=== PATIENT | male | born 1970 | race Caucasian/White ===

== ENCOUNTER 2016-09-23 10:08 | Inpatient (IN) | payer OTHER ==
[2016-09-23 10:28] VITALS: BMI 24.0
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
[2016-09-23] MEDS ORDERED: MAG HYDROX/AL HYDROX/SIMETH 30 ML UNIT-DOSE CUP PO PRN (10:42)
[2016-09-23] MEDS ORDERED: MENTHOL/PHENOL 1 EACH UD MM PRN (10:42)
[2016-09-23] MEDS ORDERED: guaiFENesin/D-METHORPHAN HB 10 ML UNIT-DOSE CUPS PO PRN (10:42)
[2016-09-23] MEDS ORDERED: chlordiazePOXIDE HCL 25 MG CAPSULE PO PRN (10:42)
[2016-09-23] MEDS ORDERED: MAGNESIUM CITRATE 300 ML BOTTLE PO PRN (10:42)
[2016-09-23] MEDS ORDERED: P-EPHED 60MG/TRIPROLIDI 2.5MG TABLET PO PRN (10:42)
[2016-09-23] MEDS ORDERED: MAGNESIUM HYDROX 2400MG/30ML ORAL SUSPENSION 30 ML CUP PO PRN (10:42)
[2016-09-23] MEDS ORDERED: NICOTINE POLACRILEX 4 MG GUM BUC PRN (10:42)
[2016-09-23] MEDS ORDERED: LOPERAMIDE HCL 2 MG CAPSULE PO PRN (10:42)
[2016-09-23] MEDS ORDERED: ACETAMINOPHEN 325 MG TABLET (FP) PO PRN (10:42)
[2016-09-23] MEDS ORDERED: chlordiazePOXIDE HCL 25 MG CAPSULE PO ONE (12:00)
[2016-09-23] MEDS ORDERED: diazePAM 5 MG TABLET PO PRN (13:22)
[2016-09-23] MEDS ORDERED: METHADONE HCL 10 MG TABLET (FOR DETOX USE ONLY) PO ONE ×2 (13:30→23:00)
[2016-09-23 13:44] LABS: URINE APPEARANCE CLEAR; URINE BILIRUBIN NEGATIVE (NEGATIVE); URINE BLOOD NEGATIVE (NEGATIVE); URINE COLOR YELLOW; URINE GLUCOSE (UA) NEGATIVE (NEGATIVE); URINE KETONE TRACE (NEGATIVE); URINE LEUK ESTERASE NEGATIVE (NEGATIVE); URINE NITRITE NEGATIVE (NEGATIVE); URINE PROTEIN NEGATIVE (NEGATIVE); URINE UROBILINOGEN 2.0 E.U/dl E.U./dl (0.2-1.0)
[2016-09-23] MEDS: chlordiazePOXIDE HCL 25 MG CAPSULE PO SCH ×2 (17:20→22:39)
--- NOTE | 2016-09-23 17:29 | CONSULT ---
[facility] Psychiatric Consult - Data Date of interview: 09/23/16 Admission source: [facility] Identifying data: First admission to [facility] for this 46 y/o male seeking detox treatment on for heroin,alcohol,cocaine and marijuana dependence.Patient is single,a father of two,homeless,unemployed and deprived of any source of income. Substance Abuse History: - Smoking Cessation. Smoking history: Current every day smoker. Have you smoked in the past 12 months: Yes. Aproximately how many cigarettes per day: 20. Hx Chewing Tobacco Use: No. Initiated information on smoking cessation: Yes. 'Breaking Loose' booklet given: 09/23/16 (given on floor). - Substance & Tx. History. Hx Alcohol Use: Yes. Hx Substance Use: Yes. Substance Use Type: Alcohol, Cocaine, Heroin. Hx Substance Use Treatment : Yes (detox, hx suboxone). - Substances Abused. Alcohol. Route: Oral. Frequency: Daily. Amount used: 2 pints vodka. Age of first use: 11. Date of Last Use: 09/23/16. Heroin. Route: Inhalation. Frequency: Daily. Amount used: $40. Age of first use: 15. Date of Last Use: 09/23/16. Cocaine. Route: Inhalation. Frequency: Daily. Amount used: $100. Age of first use: 23. Date of Last Use: 09/23/16. Marijuana/Hashish. Route: Smoking. Frequency: 1-2 times per week. Amount used: 1 joint. Age of first use: 11. Date of Last Use: 09/18/16. Confirmed by patient. Medical History: Patient endorses good general health. Psychiatric History: Patient denies. Physical/Sexual Abuse/Trauma History: Patient denies. Additional Comment: Urine Drug Screen Results: THC-Marijuana, ANTONINO-Cocaine, OPI- Opiates, BZO-Benzodiazepines, OXY-Oxycodone.Noted. Mental Status Exam - Mental Status Exam Alert and Oriented to: Time, Place, Person Cognitive Function: Impaired (moderately sedated but able to answer simple questions) Patient Appearance: Well Groomed Mood: Withdrawn Affect: Constricted Patient Behavior: Sedated, Fatigued, Cooperative Speech Pattern: Delayed, Slurred Voice Loudness: Moderately Soft/Quiet Thought Process: Disorganized (moderately) Thought Disorder: Not Present Hallucinations: Denies Suicidal Ideation: Denies Homicidal Ideation: Denies Insight/Judgement: Poor Sleep: Well (falling asleep during interview;needs prompts to stay awake) Appetite: Good (as evidenced by the empty tray at bedside) Muscle strength/Tone: Normal Gait/Station: Normal (observed walking at the time of admission to the unit) Psychiatric Findings - Problem List ([place] 1, 2,3) (1) Alcohol dependence with uncomplicated withdrawal Current Visit: Yes Status: Acute (2) Cocaine dependence Current Visit: Yes Status: Acute Qualifiers: Substance use status: uncomplicated Qualified Code(s): F14.20 - Cocaine dependence, uncomplicated (3) Nicotine dependence Current Visit: Yes Status: Acute Qualifiers: Nicotine product type: cigarettes (4) Opioid dependence, uncomplicated Current Visit: Yes Status: Acute (5) PPD positive, treated Current Visit: Yes Status: Chronic - Initial Treatment Plan Initial Treatment Plan: Detoxification in progress.Observation.
[2016-09-23] MEDS ORDERED: diphenhydrAMINE HCL 50 MG CAPSULE PO PRN (22:00)
[2016-09-23] MEDS: THIAMINE HCL 100 MG TABLET (FP) PO SCH (22:39)
[2016-09-24] MEDS: chlordiazePOXIDE HCL 25 MG CAPSULE PO SCH ×4 (05:22→22:34)
[2016-09-24 09:48] LABS: MCH 29.7 pg (25.7-33.7); MCHC 32.9 g/dl (32.0-35.9); MEAN CELL VOLUME 90.5 fl (80-96); MEAN PLT VOLUME 8.6 fl (7.5-11.1); PLATELET COUNT 165 K/MM3 (134-434); RDW 13.5 % (11.9-15.9); WHITE BLOOD COUNT 5.2 K/mm3 (4.0-10.0)
[2016-09-24] MEDS ORDERED: METHADONE HCL 10 MG TABLET (FOR DETOX USE ONLY) PO ONE (10:00)
[2016-09-24 10:11] LABS: ALBUMIN 3.4 g/dl (3.4-5.0); ALK PHOS 77 U/L (45-117); ANION GAP 8 (8-16); BILIRUBIN,TOTAL 0.5 mg/dL (0.2-1.0); CALCIUM 8.4 mg/dL (8.5-10.1); CO2 27 mmol/L (21-32); CREATININE 0.8 mg/dL (0.7-1.3); GLUCOSE,RANDOM 109 mg/dL (74-106); SGOT/AST 16 U/L (15-37); SGPT/ALT 30 U/L (12-78); TOT PROT 6.1 g/dl (6.4-8.2)
[2016-09-24] MEDS: PRENATAL VITAMINS W/ FOLIC ACID TABLET (FP) PO SCH (10:43)
--- NOTE | 2016-09-24 10:46 | PN ---
S CIWA - CIWA Score Nausea/Vomitin-No Nausea/No Vomiting Muscle Tremors: 3 Anxiety: 4-Mod. Anxious/Guarded Agitation: 3 Paroxysmal Sweats: 3 Orientation: 0-Oriented Tacttile Disturbances: 0-None Auditory Disturbances: 0-None Visual Disturbances: 0-None Headache: 0-None Present CIWA-Ar Total Score: 13 BHS COWS - Scale Resting Pulse: 0= [place] 80 or Below Sweatin=Flushed/Facial Moisture Restless Observation: 1= Difficult to Sit Still Pupil Size: 0= Normal to Room Light Bone or Joint Aches: 1= Mild Discomfort Runny Nose/ Eye Tearin= Nasal Congestion GI Upset > 30mins: 1= Stomach Cramp Tremor Observation of Outstretched Hands: 2= Slight Tremor Visible Yawning Observation: 1= 1-2x During Session Anxiety or Irritability: 2=Irritable/Anxious Goose Flesh Skin: 0=Smooth Skin COWS Score: 11 S Progress Note (SOAP) Subjective: ANXIETY,TREMORS,SWEATING,INTERRUPTED SLEEP,RESTLESS,MUSCLE ACHES/SPASM. Objective: 09/24/16 10:45 Vital Signs - 8 hr 09/24/16 09/24/16 09/24/16 03:52 06:00 10:00 Temperature 99.3 F 99.7 F H Pulse Rate 76 69 Respiratory 18 18 16 Rate Blood Pressure 141/74 137/66 Laboratory Tests 09/23/16 09/24/16 09/24/16 13:34 07:20 07:30 WBC 5.2 RBC 4.92 Hgb 14.6 Hct 44.5 MCV 90.5 MCHC 32.9 RDW 13.5 Plt Count 165 MPV 8.6 Sodium 142 Potassium 3.8 Chloride 107 Carbon Dioxide 27 Anion Gap 8 BUN 9 Creatinine 0.8 Creat Clearance w eGFR > 60 Random Glucose 109 H Calcium 8.4 L Total Bilirubin 0.5 AST 16 ALT 30 Alkaline Phosphatase 77 Total Protein 6.1 L Albumin 3.4 Urine Color Yellow Urine Appearance Clear Urine pH 6.0 Ur Specific [place] 1.018 Urine Protein Negative Urine Glucose (UA) Negative Urine Ketones Trace H Urine Blood Negative Urine Nitrite Negative Urine Bilirubin Negative Urine Urobilinogen 2.0 e.u/dl Ur Leukocyte Esterase Negative LABS NOTED Assessment: 09/24/16 10:46 WITHDRAWAL SX. Plan: CONTINUE DETOX
[2016-09-24] MEDS: hydrOXYzine PAMOATE 50 MG CAPSULE (FP) PO PRN (12:00)
[2016-09-24] MEDS: IBUPROFEN 400 MG TABLET (FP) PO PRN (20:13)
[2016-09-24] MEDS: THIAMINE HCL 100 MG TABLET (FP) PO SCH (22:32)
[2016-09-25] MEDS: chlordiazePOXIDE HCL 25 MG CAPSULE PO SCH ×2 (07:14→10:52)
[2016-09-25] MEDS ORDERED: METHADONE HCL 5 MG TABLET (FOR DETOX USE ONLY) PO ONE (10:00)
--- NOTE | 2016-09-25 10:16 | PN ---
S CIWA - CIWA Score Nausea/Vomitin Muscle Tremors: 3 Anxiety: 3 Agitation: 2 Paroxysmal Sweats: 1-Minimal Palms Moist Orientation: 0-Oriented Tacttile Disturbances: 1-Very Mild Itch/Numbness Auditory Disturbances: 1-Very Mild Visual Disturbances: 1-Very Mild Sensitivity Headache: 2-Mild CIWA-Ar Total Score: 17 BHS COWS - Scale Resting Pulse: 1= [place] 81-100 Sweatin= Chills/Flushing Restless Observation: 3= Extraneous Movement Pupil Size: 1= Pupils >than Normal Bone or Joint Aches: 2= Severe Diffuse Aches Runny Nose/ Eye Tearin= Nasal Congestion GI Upset > 30mins: 2= Nausea/Diarrhea Tremor Observation of Outstretched Hands: 2= Slight Tremor Visible Yawning Observation: 1= 1-2x During Session Anxiety or Irritability: 2=Irritable/Anxious Goose Flesh Skin: 0=Smooth Skin COWS Score: 16 BHS Progress Note (SOAP) Subjective: ALERT,IRRITABLE,ANXIOUS,INTERRUPTED SLEEP,TREMOR Objective: 09/25/16 10:15 Vital Signs Temperature 96.6 F L 09/25/16 06:00 Pulse Rate 50 L 09/25/16 06:00 Respiratory Rate 16 09/25/16 06:00 Blood Pressure 146/71 09/25/16 06:00 O2 Sat by Pulse Oximetry (%) Laboratory Last Values WBC 5.2 K/mm3 (4.0-10.0) 09/24/16 07:30 RBC 4.92 M/mm3 (4.00-5.60) 09/24/16 07:30 Hgb 14.6 GM/dL (11.7-16.9) 09/24/16 07:30 Hct 44.5 % (35.4-49) 09/24/16 07:30 MCV 90.5 fl (80-96) 09/24/16 07:30 MCHC 32.9 g/dl (32.0-35.9) 09/24/16 07:30 RDW 13.5 % (11.9-15.9) 09/24/16 07:30 Plt Count 165 K/MM3 (134-434) 09/24/16 07:30 MPV 8.6 fl (7.5-11.1) 09/24/16 07:30 Sodium 142 mmol/L (136-145) 09/24/16 07:20 Potassium 3.8 mmol/L (3.5-5.1) 09/24/16 07:20 Chloride 107 mmol/L (98-107) 09/24/16 07:20 Carbon Dioxide 27 mmol/L (21-32) 09/24/16 07:20 Anion Gap 8 (8-16) 09/24/16 07:20 BUN 9 mg/dL (7-18) 09/24/16 07:20 Creatinine 0.8 mg/dL (0.7-1.3) 09/24/16 07:20 Creat Clearance w eGFR > 60 (>60) 09/24/16 07:20 Random Glucose 109 mg/dL (74-106) H 09/24/16 07:20 Calcium 8.4 mg/dL (8.5-10.1) L 09/24/16 07:20 Total Bilirubin 0.5 mg/dL (0.2-1.0) 09/24/16 07:20 AST 16 U/L (15-37) 09/24/16 07:20 ALT 30 U/L (12-78) 09/24/16 07:20 Alkaline Phosphatase 77 U/L (45-117) 09/24/16 07:20 Total Protein 6.1 g/dl (6.4-8.2) L 09/24/16 07:20 Albumin 3.4 g/dl (3.4-5.0) 09/24/16 07:20 Urine Color Yellow 09/23/16 13:34 Urine Appearance Clear 09/23/16 13:34 Urine pH 6.0 (5.0-8.0) 09/23/16 13:34 Ur Specific [place] 1.018 (1.001-1.035) 09/23/16 13:34 Urine Protein Negative (NEGATIVE) 09/23/16 13:34 Urine Glucose (UA) Negative (NEGATIVE) 09/23/16 13:34 Urine Ketones Trace (NEGATIVE) H 09/23/16 13:34 Urine Blood Negative (NEGATIVE) 09/23/16 13:34 Urine Nitrite Negative (NEGATIVE) 09/23/16 13:34 Urine Bilirubin Negative (NEGATIVE) 09/23/16 13:34 Urine Urobilinogen 2.0 e.u/dl E.U./dl (0.2-1.0) 09/23/16 13:34 Ur Leukocyte Esterase Negative (NEGATIVE) 09/23/16 13:34 RPR Titer Nonreactive (NONREACTIVE) 09/24/16 07:20 Assessment: 09/25/16 10:15 WITHDRAWAL SYMPTOM Plan: CONTINUE DETOX
[2016-09-25] MEDS: PRENATAL VITAMINS W/ FOLIC ACID TABLET (FP) PO SCH (10:52)
[2016-09-25] MEDS: chlordiazePOXIDE 5 MG CAPSULE PO SCH ×2 (17:31→22:35)
[2016-09-25] MEDS: THIAMINE HCL 100 MG TABLET (FP) PO SCH (22:35)
[2016-09-25] MEDS: IBUPROFEN 400 MG TABLET (FP) PO PRN (22:35)
[2016-09-25] MEDS: hydrOXYzine PAMOATE 50 MG CAPSULE (FP) PO PRN (22:35)
[2016-09-26] MEDS: chlordiazePOXIDE 5 MG CAPSULE PO SCH ×2 (06:28→10:49)
--- NOTE | 2016-09-26 08:50 | DS ---
[facility] Detox Discharge Summary Admission Date: 09/23/16 Discharge Date: 09/26/16 - History Present History: Alcohol Dependence, Cocaine Dependence, Opioid Dependence - Physical Exam Results Vital Signs: Vital Signs Temperature 98.1 F 09/26/16 06:49 Pulse Rate 63 09/26/16 06:49 Respiratory Rate 16 09/26/16 06:49 Blood Pressure 116/71 09/26/16 06:49 O2 Sat by Pulse Oximetry (%) - Treatment Hospital Course: Detox Protocol Followed, Detoxed Safely, Responded well, Discharged Condition Good, Rehab Referral Accepted - Medication Discharge Medications: Ambulatory Orders NK [No Known Home Medication] 09/23/16 - Diagnosis (1) Alcohol dependence with uncomplicated withdrawal Current Visit: Yes Status: Chronic (2) Cocaine dependence Current Visit: Yes Status: Chronic Qualifiers: Substance use status: uncomplicated Qualified Code(s): F14.20 - Cocaine dependence, uncomplicated (3) Nicotine dependence Current Visit: Yes Status: Chronic Qualifiers: Nicotine product type: cigarettes (4) Opioid dependence, uncomplicated Current Visit: Yes Status: Chronic (5) PPD positive, treated Current Visit: Yes Status: Chronic - AMA Did Patient Leave Against Medical Advice: No
[2016-09-26] MEDS ORDERED: METHADONE HCL 5 MG TABLET (FOR DETOX USE ONLY) PO ONE (10:00)
[2016-09-26] MEDS: PRENATAL VITAMINS W/ FOLIC ACID TABLET (FP) PO SCH (10:47)
[2016-09-26] MEDS: IBUPROFEN 400 MG TABLET (FP) PO PRN (10:48)
[2016-09-26] MEDS ORDERED: LIDOCAINE VISCOUS 2% ORAL/TOP 20 ML UNIT-DOSE CUP MM PRN (10:49)
--- NOTE | 2016-09-26 10:49 | PN ---
BHS Progress Note (SOAP) Subjective: INTERRUPTED SLEEP, SWEATS , ACHES Objective: 09/26/16 10:46 Vital Signs Temperature 98.1 F 09/26/16 06:49 Pulse Rate 63 09/26/16 06:49 Respiratory Rate 16 09/26/16 06:49 Blood Pressure 116/71 09/26/16 06:49 O2 Sat by Pulse Oximetry (%) Laboratory Tests 09/23/16 09/24/16 09/24/16 13:34 07:20 07:20 WBC RBC Hgb Hct MCV MCHC RDW Plt Count MPV Sodium 142 Potassium 3.8 Chloride 107 Carbon Dioxide 27 Anion Gap 8 BUN 9 Creatinine 0.8 Creat Clearance w eGFR > 60 Random Glucose 109 H Calcium 8.4 L Total Bilirubin 0.5 AST 16 ALT 30 Alkaline Phosphatase 77 Total Protein 6.1 L Albumin 3.4 Urine Color Yellow Urine Appearance Clear Urine pH 6.0 Ur Specific [place] 1.018 Urine Protein Negative Urine Glucose (UA) Negative Urine Ketones Trace H Urine Blood Negative Urine Nitrite Negative Urine Bilirubin Negative Urine Urobilinogen 2.0 e.u/dl Ur Leukocyte Esterase Negative RPR Titer Nonreactive 09/24/16 07:30 WBC 5.2 RBC 4.92 Hgb 14.6 Hct 44.5 MCV 90.5 MCHC 32.9 RDW 13.5 Plt Count 165 MPV 8.6 Sodium Potassium Chloride Carbon Dioxide Anion Gap BUN Creatinine Creat Clearance w eGFR Random Glucose Calcium Total Bilirubin AST ALT Alkaline Phosphatase Total Protein Albumin Urine Color Urine Appearance Urine pH Ur Specific [place] Urine Protein Urine Glucose (UA) Urine Ketones Urine Blood Urine Nitrite Urine Bilirubin Urine Urobilinogen Ur Leukocyte Esterase RPR Titer PT AOX 3 IN NAD AMBULATING Assessment: 09/26/16 10:46 WITHDRAWL SX'S TOOTHACHE 09/26/16 10:48 Plan: CONT. DETOX INCREASE FLUIDS MOTRIN PRN ENCOURAGE PT TO ADHERE WITH VS RDGS VISCOUS LIDOCAINE
[2016-09-26] MEDS ORDERED: IBUPROFEN 600 MG TABLET (FP) PO PRN (10:50)
[2016-09-26] MEDS ORDERED: chlordiazePOXIDE HCL 10 MG CAPSULE PO SCH (17:00)
[2016-09-26 18:16] VITALS: BP 130/78; PULSE 77; TEMP 98.1
--- NOTE | 2016-09-26 23:13 | DS ---
[facility] Detox Discharge Summary Admission Date: 09/23/16 Discharge Date: 09/26/16 - History Present History: Alcohol Dependence, Opioid Dependence Additional Comments: 46 YEARS OLD MALE CAME TO [facility] FOR ALCOHOL AND HEROIN DETOX, PER UNIT COUNSELOR, PATIENT INSISTS TO MEET WITH HIS GIRL FRIEND TODAY UNWILLING TO ACCEPT MODIFIED DETOX REGIMEN. PATIENT REFUSED TO WAIT FOR FACE TO FACE WITH THE PROVIDER. Pertinent Past History: NICOTINE DEPENDENCE - Physical Exam Results Vital Signs: Vital Signs Temperature 98.1 F 09/26/16 18:15 Pulse Rate 77 09/26/16 18:15 Respiratory Rate 18 09/26/16 18:15 Blood Pressure 130/78 09/26/16 18:15 O2 Sat by Pulse Oximetry (%) Pertinent Admission Physical Exam Findings: WITHDRAWAL SX Laboratory Last Values WBC 5.2 K/mm3 (4.0-10.0) 09/24/16 07:30 RBC 4.92 M/mm3 (4.00-5.60) 09/24/16 07:30 Hgb 14.6 GM/dL (11.7-16.9) 09/24/16 07:30 Hct 44.5 % (35.4-49) 09/24/16 07:30 MCV 90.5 fl (80-96) 09/24/16 07:30 MCHC 32.9 g/dl (32.0-35.9) 09/24/16 07:30 RDW 13.5 % (11.9-15.9) 09/24/16 07:30 Plt Count 165 K/MM3 (134-434) 09/24/16 07:30 MPV 8.6 fl (7.5-11.1) 09/24/16 07:30 Sodium 142 mmol/L (136-145) 09/24/16 07:20 Potassium 3.8 mmol/L (3.5-5.1) 09/24/16 07:20 Chloride 107 mmol/L (98-107) 09/24/16 07:20 Carbon Dioxide 27 mmol/L (21-32) 09/24/16 07:20 Anion Gap 8 (8-16) 09/24/16 07:20 BUN 9 mg/dL (7-18) 09/24/16 07:20 Creatinine 0.8 mg/dL (0.7-1.3) 09/24/16 07:20 Creat Clearance w eGFR > 60 (>60) 09/24/16 07:20 Random Glucose 109 mg/dL (74-106) H 09/24/16 07:20 Calcium 8.4 mg/dL (8.5-10.1) L 09/24/16 07:20 Total Bilirubin 0.5 mg/dL (0.2-1.0) 09/24/16 07:20 AST 16 U/L (15-37) 09/24/16 07:20 ALT 30 U/L (12-78) 09/24/16 07:20 Alkaline Phosphatase 77 U/L (45-117) 09/24/16 07:20 Total Protein 6.1 g/dl (6.4-8.2) L 09/24/16 07:20 Albumin 3.4 g/dl (3.4-5.0) 09/24/16 07:20 Urine Color Yellow 09/23/16 13:34 Urine Appearance Clear 09/23/16 13:34 Urine pH 6.0 (5.0-8.0) 09/23/16 13:34 Ur Specific [place] 1.018 (1.001-1.035) 09/23/16 13:34 Urine Protein Negative (NEGATIVE) 09/23/16 13:34 Urine Glucose (UA) Negative (NEGATIVE) 09/23/16 13:34 Urine Ketones Trace (NEGATIVE) H 09/23/16 13:34 Urine Blood Negative (NEGATIVE) 09/23/16 13:34 Urine Nitrite Negative (NEGATIVE) 09/23/16 13:34 Urine Bilirubin Negative (NEGATIVE) 09/23/16 13:34 Urine Urobilinogen 2.0 e.u/dl E.U./dl (0.2-1.0) 09/23/16 13:34 Ur Leukocyte Esterase Negative (NEGATIVE) 09/23/16 13:34 RPR Titer Nonreactive (NONREACTIVE) 09/24/16 07:20 Hepatitis C Antibody <0.1 s/co ratio (0.0-0.9) 09/24/16 07:20 LAB NOTED - Treatment Hospital Course: Detox Protocol Followed, Responded well - Medication Discharge Medications: Ambulatory Orders NK [No Known Home Medication] 09/23/16 - Diagnosis (1) Alcohol dependence with uncomplicated withdrawal Status: Acute (2) Nicotine dependence Status: Acute Qualifiers: Nicotine product type: cigarettes Substance use status: uncomplicated Qualified Code(s): F17.210 - Nicotine dependence, cigarettes, uncomplicated (3) Opioid dependence, uncomplicated Status: Acute (4) PPD positive, treated Status: Resolved - AMA Did Patient Leave Against Medical Advice: Yes
[2016-09-27] MEDS ORDERED: METHADONE HCL 10 MG TABLET (FOR DETOX USE ONLY) PO ONE (10:00)
[2016-09-28] MEDS ORDERED: METHADONE HCL 5 MG TABLET (FOR DETOX USE ONLY) PO ONE (06:00)
== END 2016-09-26 18:40 | disposition left against medical advice (07) | DRG 770 ==
LOC: YASAS 10:08 → UNDOADMIN 11:06 → Y6N 11:06
PROVIDERS: ADMIT Internal Medicine; ATTEND Internal Medicine
PROC: HZ2ZZZZ Detoxification Services for Substance Abuse Treatment (ICD-10-PCS; principal; 2016-09-23)
DX: F10.230 Alcohol dependence with withdrawal, uncomplicated (principal); F11.20 Opioid dependence, uncomplicated; F14.20 Cocaine dependence, uncomplicated; F17.210 Nicotine dependence, cigarettes, uncomplicated; R76.11 Nonspecific reaction to tuberculin skin test without active tuberculosis; K08.89 Other specified disorders of teeth and supporting structures
CPT/HCPCS: 36415; 71020-TC; 80053; 81003; 85027; 86593; 86803; 93005; 93010